=== PATIENT | male | born 1950 | race African-American/Black ===

== ENCOUNTER 2020-11-14 01:42 | Day surgery (SDCO) | payer MEDICARE, OTHER ==
[~2020-11-14] VITALS: Ht 172.7 cm; Wt 91.7 kg
[~2020-11-14 01:42] MED LIST: AMARYL2 MG PO; ASPIR 8181 MG PO; AZITHROMYCIN250 MG PO; CLEOCIN300 MG PO; FEOSOL325 MG PO; FLEXERIL10 MG PO; GLUCOPHAGE500 MG PO; HCTZ25 MG PO; LOPRESSOR25 MG PO; LOVENOX40 MG/0.4 SC; MUCINEX 600MG600 MG PO; NITROGLYCERIN0.4 MG SL; NORVASC5 MG PO; PERCOCET 5-3251 EACH PO; PRINIVIL20 MG PO; SENOKOT-S TABL1 EACH PO; VALSARTAN40 MG PO; XANAX0.5 M1 PO; ZOCOR20 MG PO
[2020-11-14 02:54] LABS: LACTIC ACID 2.1 mmol/L (0.4-1.9)
[2020-11-14 03:01] LABS: ALBUMIN 3.7 g/dL (3.4-5.0); BASOPHIL 0.2 % (0-2); BILIRUBIN - TOTAL 0.5 mg/dL (0.2-1.0); BUN/CREAT RATIO (CALC) 13.8 RATIO; C-REACTIVE PROTEIN 9.5 mg/dL (<=0.90); CREATININE 1.38 mg/dL (0.67-1.17); EOSINOPHIL 0 % (0-7); GLOBULIN (CALCULATION) 3.9 g/dL; HCT 42.8 % (42.0-52.0); HGB 14.6 g/dl (13.2-18.0); MCH 30.2 pg (25.0-31.0); MCHC 34.1 g/dL (32.0-36.0); MCV 88.6 fL (78.0-100.0); MPV 10.1 fL (6.0-9.5); NEUTROPHIL 79.9 % (41-80); NRBC 0; PLT 198 K/uL (150-400); POTASSIUM 4.6 mmol/L (3.5-5.1); RBC 4.83 M/uL (4.70-6.00); RDW 13.4 % (11.5-14.0); TOTAL PROTEIN 7.6 g/dL (6.4-8.2); WBC 5.5 K/uL (4.0-10.5)
[2020-11-14 03:54] LABS: BILIRUBIN NEGATIVE (NEGATIVE); BLOOD TRACE-INTACT Ery/uL (NEGATIVE); CLARITY CLEAR (CLEAR); COLOR YELLOW (YELLOW); GLUCOSE (U) 3+ mg/dL (NORMAL); LEUKOCYTES NEGATIVE Leu/uL (NEGATIVE); NITRITE NEGATIVE (NEGATIVE); PROTEIN 2+ mg/dL (NEGATIVE); UROBILINOGEN 0.2 mg/dL (0.2-1.0); pH 5.5 (5.0-9.0)
[2020-11-14 03:59] LABS: SQUAMOUS EPITHELIAL CELLS RARE; URINARY RBC RARE
[2020-11-14] MEDS ORDERED: LIPITOR 10MG TA10 MG PO (09:46)
[2020-11-14] MEDS ORDERED: JARDIANCE10 MG PO (09:46)
[2020-11-14] MEDS ORDERED: DIOVAN80 MG PO (09:47)
[2020-11-14] MEDS ORDERED: ONE-A-DAY MEN'1 EAC3 PO (09:48)
--- NOTE | 2020-11-14 15:50 | NUR ---
PT LIVES WITH SPOUSE; PT IS INDEPENDENT WITH CARE PLEASE ADVISE OF ANY DISCHARGE NEEDS. PT IS AN OBSERVATION PATIENT
[2020-11-15 06:53] LABS: BASOPHIL 0 % (0-2); EOSINOPHIL 0 % (0-7); HCT 39.6 % (42.0-52.0); HGB 13.1 g/dl (13.2-18.0); LYMPHOCYTE 23.8 % (15-48); MCH 29.9 pg (25.0-31.0); MCHC 33.1 g/dL (32.0-36.0); MCV 90.4 fL (78.0-100.0); MPV 9.6 fL (6.0-9.5); NEUTROPHIL 68.9 % (41-80); NRBC 0; PLT 170 K/uL (150-400); RBC 4.38 M/uL (4.70-6.00); RDW 13.4 % (11.5-14.0); WBC 3.2 K/uL (4.0-10.5)
[2020-11-15 07:02] LABS: BUN/CREAT RATIO (CALC) 22.1 RATIO; CREATININE 0.95 mg/dL (0.67-1.17); POTASSIUM 4.5 mmol/L (3.5-5.1)
[2020-11-15] MEDS ORDERED: DEXAMETHASONE 2M2 MG PO (08:17)
[2020-11-16] MEDS ORDERED: ACETAMINOPHEN500 M1 PO (15:38)
[2020-11-16] MEDS ORDERED: ONDANSETRON ODT4 MG PO (15:38)
== END 2020-11-15 10:44 | disposition home or self-care (01) ==
LOC: FER 01:42 → FMS 05:35
PROVIDERS: Emergency Medicine Emergency Medical Services; ADMIT Allergy & Immunology Allergy
DX: U07.1 COVID-19 (principal); I25.810 Atherosclerosis of coronary artery bypass graft(s) without angina pectoris; E78.5 Hyperlipidemia, unspecified; E11.9 Type 2 diabetes mellitus without complications; R00.0 Tachycardia, unspecified; R53.1 Weakness; Z86.79 Personal history of other diseases of the circulatory system; Z87.891 Personal history of nicotine dependence; Z96.652 Presence of left artificial knee joint; Z98.890 Other specified postprocedural states; Z95.828 Presence of other vascular implants and grafts; Z95.5 Presence of coronary angioplasty implant and graft; Z88.6 Allergy status to analgesic agent; Z88.0 Allergy status to penicillin; Z79.4 Long term (current) use of insulin; Z79.899 Other long term (current) drug therapy
CPT/HCPCS: 36415; 71045; 80048; 80053; 81001; 82728; 83605; 83615; 84484; 85025; 85379; 86140; 87040; 93005; 97110; 97162; 97165; 97535; G0378; J1650; J7030; J7120; J8540; U0002

== ENCOUNTER 2020-11-16 08:52 | Emergency (ER) | payer MEDICARE, OTHER ==
[~2020-11-16 08:52] MED LIST changes: +DEXAMETHASONE 2M2 MG PO; +DIOVAN80 MG PO; +JARDIANCE10 MG PO; +LIPITOR 10MG TA10 MG PO; +ONE-A-DAY MEN'1 EAC3 PO
[2020-11-16 09:56] LABS: BASOPHIL 0 % (0-2); EOSINOPHIL 0 % (0-7); HCT 42.1 % (42.0-52.0); HGB 14.1 g/dl (13.2-18.0); LYMPHOCYTE 11.3 % (15-48); MCH 29.7 pg (25.0-31.0); MCHC 33.5 g/dL (32.0-36.0); MCV 88.6 fL (78.0-100.0); MONOCYTE 3.6 % (0-12); MPV 9.7 fL (6.0-9.5); NEUTROPHIL 84.9 % (41-80); NRBC 0; PLT 199 K/uL (150-400); RBC 4.75 M/uL (4.70-6.00); RDW 13.4 % (11.5-14.0)
[2020-11-16 09:58] LABS: WBC 6.1 K/uL (4.0-10.5)
[2020-11-16 10:19] LABS: ALBUMIN 3.5 g/dL (3.4-5.0); BILIRUBIN - TOTAL 0.4 mg/dL (0.2-1.0); BUN/CREAT RATIO (CALC) 15.9 RATIO; CREATININE 1.26 mg/dL (0.67-1.17); GLOBULIN (CALCULATION) 4.4 g/dL; MAGNESIUM 1.9 mg/dL (1.8-2.4); POTASSIUM 4.3 mmol/L (3.5-5.1); TOTAL PROTEIN 7.9 g/dL (6.4-8.2)
[2020-11-16 12:01] LABS: BILIRUBIN NEGATIVE (NEGATIVE); BLOOD 1+ Ery/uL (NEGATIVE); CLARITY CLEAR (CLEAR); COLOR YELLOW (YELLOW); GLUCOSE (U) 3+ mg/dL (NORMAL); LEUKOCYTES NEGATIVE Leu/uL (NEGATIVE); NITRITE NEGATIVE (NEGATIVE); PROTEIN 2+ mg/dL (NEGATIVE); SPECIFIC GRAVITY 1.025 (1.001-1.030); UROBILINOGEN 0.2 mg/dL (0.2-1.0); pH 5.5 (5.0-9.0)
[2020-11-16 12:29] LABS: BACTERIA TRACE; MUCOUS TRACE; SPERM PRESENT; URINARY RBC RARE
[2020-11-16] MEDS ORDERED: ONDANSETRON ODT4 MG PO (15:38)
[2020-11-16] MEDS ORDERED: ACETAMINOPHEN500 M1 PO (15:38)
== END 2020-11-16 16:15 | disposition home or self-care (01) ==
LOC: FER 08:52
PROVIDERS: Emergency Medicine
DX: U07.1 COVID-19 (principal); E11.9 Type 2 diabetes mellitus without complications; I10 Essential (primary) hypertension; E78.5 Hyperlipidemia, unspecified; Z95.5 Presence of coronary angioplasty implant and graft; Z95.1 Presence of aortocoronary bypass graft; Z88.0 Allergy status to penicillin; Z88.5 Allergy status to narcotic agent; Z87.891 Personal history of nicotine dependence
CPT/HCPCS: 36415; 71045; 71275; 80053; 81001; 83605; 83735; 85025; 93005; J7030